=== PATIENT | male | born 1995 | race Caucasian/White ===

== ENCOUNTER 2024-06-09 08:49 | Emergency (ER) | payer OTHER, SELFPAY ==
[2024-06-09] VITALS (9 sets, daily range): BP systolic 116–125; BP diastolic 66–81; PULSE 62–69; RESP 13–28; TEMP 36.6; O2SAT 96–100; BMI 29.0
--- NOTE | 2024-06-09 10:21 | ED_ITS ---
HPI - Chest Pain General Chief Complaint: Chest Pain Stated Complaint: Tightness in chest, radiating to neck. Time Seen by Provider: 06/09/24 09:38 History of Present Illness HPI narrative: Patient is a 29-year-old healthy male who presents today with left-sided chest pain. He says off and on for about 1 week he has some sharp shooting pains. It happens more at rest than with exertion. This is the same spot lasting about a 2nd at a time. No real shortness of breath. He has a nonsmoker. No family history of coronary artery disease. He has not traveled anywhere he has no significant shortness of breath no fever or upper respiratory illness. He denies any sort of injury. It has not really reproducible with palpation or are moving Related Data Allergies Allergy/AdvReac Type Severity Reaction Status Date / Time No Known Drug Allergies Allergy Verified 06/09/24 08:52 Patient History Social History Smoking Status: Never smoker Smoking Status: Never smoker Exam Initial Vital Signs Initial Vital Signs: Vital Signs Temperature 97.9 F 06/09/24 08:52 Pulse Rate 68 06/09/24 08:52 Respiratory Rate 18 06/09/24 08:52 Blood Pressure 123/81 06/09/24 08:52 Pulse Oximetry 100 06/09/24 08:52 Oxygen Delivery Method Room Air 06/09/24 08:52 GENERAL: Alert pleasant well-appearing 29-year-old male and in no acute distress. HEENT: Head atraumatic,EOMI, pupils reactive, face symmetric, moist mucous membranes CARDIOVASCULAR: Regular rate and rhythm without murmurs, rubs or gallops. Pain on left side not reproducible with palpation or movement RESPIRATORY: Breath sounds equal bilaterally, no wheezes rales or rhonchi. ABDOMEN: Soft, nontender. Normoactive bowel sounds all 4 quadrants. No guarding or rebound. EXTREMITIES: Normal range of motion, no clubbing or edema. Neurovascularly intact NEUROLOGICAL: Alert and oriented x4.Normal gait and speech. Cranial nerves II through XII grossly intact. SKIN: Warm, dry, no laceration, no petechiae, no rashes or lesions. Course Orders Ordered: ED Orders 06/09/24 10:25 EKG-12 Lead Stat 06/09/24 10:32 EKG-12 Lead Stat 06/09/24 10:33 XR chest 2V Stat 06/09/24 10:55 Complete Blood Count AUTO DIFF Stat Comprehensive Metabolic Panel Stat Lipase Stat Troponin & CK Cardiac Panel Stat Vital Signs Vital signs: Vital Signs - 8 hr 06/09/24 11:00 06/09/24 11:30 06/09/24 11:51 Pulse Rate 65 63 Respiratory Rate 17 20 Blood Pressure 120/76 Pulse Oximetry 97 98 06/09/24 11:51 Pulse Rate 62 Respiratory Rate 23 Blood Pressure Pulse Oximetry 98 MDM - Chest Pain Lab Data 06/09/24 10:55 06/09/24 10:55 Labs: Lab Results 06/09/24 Range/Units 10:55 WBC 7.2 (4.5-11.0) X10^3/uL RBC 4.94 (4.5-5.9) X10^6/uL Hgb 14.4 (13.5-17.5) g/dL Hct 43.1 (41-53) % MCV 87.2 (80-100) fL MCH 29.1 (26-34) PG MCHC 33.4 (30-36) % RDW 13.0 (11.6-14.8) % Plt Count 254 (150-400) X10^3/uL Neut % (Auto) 72.6 (50-75) % Lymph % (Auto) 20.9 L (25-40) % Randall % (Auto) 5.4 (3-14) % Eos % (Auto) 0.6 L (2-4) % Baso % (Auto) 0.5 (0-2) % Neut # (Auto) 5200 (1699-0515) /uL Lymph # (Auto) 1500 (0658-5357) /uL Randall # (Auto) 400 (0-900) /uL Eos # (Auto) 0 (0-450) /uL Baso # (Auto) 0 (0-100) /uL Sodium 139 (137-145) mmol/L Potassium 4.5 (3.4-5.1) mmol/L Chloride 106 (98-107) mmol/L Carbon Dioxide 28 (22-32) mmol/L BUN 14 (9-20) mg/dL Creatinine 0.81 (0.66-1.25) mg/dL Estimated GFR > 60 (>60) mL/min BUN/Creatinine Ratio 17.3 (6-22) Glucose 99 (70-100) mg/dL Calcium 9.5 (8.4-10.2) mg/dL Total Bilirubin 0.4 (0.2-1.3) mg/dL AST 49 (17-59) IU/L ALT 69 H (<50) IU/L Alkaline Phosphatase 75 (38-126) U/L Total Creatine Kinase 75 (55-170) U/L Troponin I < 0.012 (0.01-0.034) ng/mL Total Protein 7.5 (6.3-8.2) g/dL Albumin 4.8 (3.5-5.0) g/dL Globulin 2.7 (1.7-4.1) g/dL Albumin/Globulin Ratio 1.8 (1.0-2.8) Lipase 800 H (23-300) U/L Urine Dip Bedside Urine Glucose Negative Bedside Urine Bilirubin - Negative Bedside Urine Ketone - Negative Urine Specific [place] 1.010 Bedside Urine Occult Blood - Negative Bedside Urine pH 6.5 Bedside Urine Protein - Negative Bedside Urine Urobilinogen - Negative Bedside Urine Nitrite - Negative Bedside Urine Leukocytes - Negative Esterase Imaging Data Chest x-ray: Radiologist's Impression: PROCEDURE: XR CHEST 2V INDICATIONS: left sided chest pain TECHNIQUE: 2 views of the chest were acquired. COMPARISON: None. FINDINGS: Surgical changes and devices: None. Lungs and pleura: Lungs are clear. No pleural effusions or pneumothorax. Mediastinum: Mediastinal contours are normal. Heart size is normal. Bones and chest wall: No suspicious bony abnormalities. Soft tissues appear unremarkable. IMPRESSION: No acute cardiopulmonary abnormality is seen. Dictated by: Tex Ca M.D. on 06/09/2024 at 10:55 Approved by: Tex Ca M.D. on 06/09/2024 at 10:58 ECG Data Attestation: I personally reviewed and interpreted this ECG as follows: Prior ECG tracings: not available for review Interpretation: Normal sinus rhythm rate 64 MN interval 174 QRS 88 QTC 400 MDM Narrative Medical decision making narrative: MDM CC: Chest pain Complicating co-morbidities: No medical history, nonsmoker no family history Differential considered: Acute coronary syndrome pericarditis myocarditis, pneumonia pneumothorax pulmonary embolism Exam documented above, pertinent findings include: Pain not reproducible appears well nontoxic Lab Test results independently reviewed as above. Pertinent findings: No leukocytosis no anemia No electrolyte abnormalities No NADEEN Independently reviewed EKG as above: Sinus rhythm without ischemia no ST changes Imaging studies independently reviewed: CXR no abnormality Treatments: none Re-evaluations: No further pain Discussion: 29-year-old male presenting today with left-sided chest pain. Pain is intermittent resting only seconds. No significant shortness of breath. It has not reproducible. Workup in the emergency department overall reassuring. Blood work does not show any abnormality, chest x-ray EKGs normal. At this time recommend outpatient follow-up Discharge Plan Departure Patient Disposition: Home Clinical Impression: Atypical chest pain Instructions: DI for Atypical Chest Pain Activity Restrictions/Additional Instructions: *You have been diagnosed with atypical chest pain *What to do: At this time blood work and chest x-ray are overall reassuring. I do recommend that you get a primary care provider. *Continue to take medications as directed *Follow up with your primary care provider in 2-3 days or call [phone] *Return to ER if you should have increasing chest pain palpitations dizziness lightheadedness or any new, worsening or concerning symptoms Referrals: [facility], [Primary Care Provider] - Stand Alone Forms: Patient Portal/API/Survey
--- NOTE | 2024-06-09 10:25 | EKG_ITS ---
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
--- NOTE | 2024-06-09 10:30 | PC.NURSE ---
PT currently denies having any chest pain. Since last sunday (8 days) pt has had short, transient chest pressure on his left chest that radiates to left neck and shoulder. No diaphoresis. No SOB. He has also had some head pressure that he took ibuprofen for yesterday evening. Denies cardiac history. Denies taking daily medications. He works on the [employer] locally. Pain is random and transient for just a few seconds before it no longer hurts.
--- NOTE | 2024-06-09 10:33 | DI.RAD.S_ITS ---
PROCEDURE: XR CHEST 2V INDICATIONS: left sided chest pain TECHNIQUE: 2 views of the chest were acquired. COMPARISON: None. FINDINGS: Surgical changes and devices: None. Lungs and pleura: Lungs are clear. No pleural effusions or pneumothorax. Mediastinum: Mediastinal contours are normal. Heart size is normal. Bones and chest wall: No suspicious bony abnormalities. Soft tissues appear unremarkable. IMPRESSION: No acute cardiopulmonary abnormality is seen. Dictated by: Tex aC M.D. on 06/09/2024 at 10:55 Approved by: Tex Ca M.D. on 06/09/2024 at 10:58
[2024-06-09 11:03] LABS: Add Manual Diff / Slide Review NO; Basophils Absolute Auto 0 /uL (0-100); Basophils Percent Auto 0.5 % (0-2); Eosinophils Absolute Auto 0 /uL (0-450); Eosinophils Percent Auto 0.6 % (2-4); Hematocrit 43.1 % (41-53); Hemoglobin 14.4 g/dL (13.5-17.5); Lymphocytes Absolute Auto 1500 /uL (1100-4500); Lymphocytes Percent Auto 20.9 % (25-40); Mean Corpuscular HGB Conc 33.4 % (30-36); Mean Corpuscular Hemoglobin 29.1 PG (26-34); Mean Corpuscular Volume 87.2 fL (80-100); Monocytes Absolute Auto 400 /uL (0-900); Monocytes Percent Auto 5.4 % (3-14); Neutrophils Absolute Auto 5200 /uL (1500-7000); Neutrophils Percent Auto 72.6 % (50-75); Platelet Count 254 X10^3/uL (150-400); Red Blood Cell Count 4.94 X10^6/uL (4.5-5.9); White Blood Cell Count 7.2 X10^3/uL (4.5-11.0)
[2024-06-09 11:15] LABS: Alanine Aminotransferase 69 IU/L (<50); Albumin 4.8 g/dL (3.5-5.0); Albumin Globulin Ratio 1.8 (1.0-2.8); Alkaline Phosphatase 75 U/L (38-126); Aspartate Aminotransferase 49 IU/L (17-59); BUN Creatinine Ratio 17.3 (6-22); Bilirubin Total 0.4 mg/dL (0.2-1.3); Blood Urea Nitrogen 14 mg/dL (9-20); Calcium 9.5 mg/dL (8.4-10.2); Carbon Dioxide 28 mmol/L (22-32); Chloride 106 mmol/L (98-107); Creatine Kinase 75 U/L (55-170); Estimated Glomerular Filt Rate > 60 mL/min (>60); Globulin 2.7 g/dL (1.7-4.1); Glucose 99 mg/dL (70-100); HEMOLYSIS < 15 (0-50); Lipase 800 U/L (23-300); Potassium 4.5 mmol/L (3.4-5.1); Sodium 139 mmol/L (137-145); Total Protein 7.5 g/dL (6.3-8.2)
[2024-06-09 11:27] LABS: Troponin I < 0.012 ng/mL (0.01-0.034)
== END 2024-06-09 12:03 | disposition home or self-care (01) ==
PROVIDERS: Emergency Provider Emergency Medicine
DX: R07.89 Other chest pain (principal)
CPT/HCPCS: 36415; 71046; 80053; 81003; 82550; 83690; 84484; 85025; 93005; 99283; 99284